=== PATIENT | male | born 1935 | race Caucasian/White ===

== ENCOUNTER 2017-03-03 00:21 | Emergency (ER) | payer MEDICARE, MEDICAID ==
[~2017-03-03] VITALS: Ht 167.6 cm; Wt 68.0 kg
--- NOTE | 2017-03-03 00:40 | NUR ---
to bed 3 ambulatory with family member c/o nosebleed x2 hours. pt aaox4 no acute distress noted, resp even and unlabored. active nosebleed noted with improvised nasal packing noted in both nostrils. pt denies pain or discomfort at this time. er md at bedside to eval pt with orders receved. will carry out orders.
--- NOTE | 2017-03-03 00:44 | NUR ---
nasal clamp placed per er md order.
--- NOTE | 2017-03-03 01:20 | NUR ---
no nose bleed noted at this time.
[2017-03-03] MEDS ORDERED: PHENYLEPHRINE 0.5% NASAL SPRAY 15 ML BOTTLE NS ONE ×2 (01:31→02:00)
--- NOTE | 2017-03-03 01:43 | NUR ---
er md at bedside to apply nasal packing to R nostril.
[2017-03-03 02:15] LABS: BASOPHILS % (AUTO) 0.1 % (0.0-2.0); EOSINOPHILS % (AUTO) 0.2 % (0.0-6.0); HEMATOCRIT 33 % (39-51); HEMOGLOBIN 10.9 g/dL (13.5-17.5); LYMPHOCYTES # (AUTO) 1.1 /CMM (0.8-4.8); MEAN CORPUSCULAR HEMOGLOBIN 28 PG (26.0-33.0); MEAN CORPUSCULAR HGB CONC 33 g/dl (31.0-36.0); MEAN CORPUSCULAR VOLUME 86 fL (80-96); MONOCYTES # (AUTO) 0.5 /CMM (0.1-1.30); NEUTROPHILS # (AUTO) 9.6 /CMM (1.8-8.9); NEUTROPHILS % (AUTO) 85.7 % (43.0-81.0); PLATELET COUNT (AUTO) 257 /CMM (150-450); RDW COEFFICIENT OF VARIATION 15.9 (11.5-15.0); RED BLOOD CELL COUNT(AUTO) 3.87 MIL/uL (4.5-6.0); WHITE BLOOD COUNT (AUTO) 11.2 K/uL (4.3-11.0)
--- NOTE | 2017-03-03 02:39 | NUR ---
pt still bleeding to R nare. er aware with order to remove packing and reapply nasal clamp.
--- NOTE | 2017-03-03 03:14 | NUR ---
er md at bedside to insert posterior nasal packing.
[2017-03-03 04:03] VITALS: BP 145/76
--- NOTE | 2017-03-03 04:05 | NUR ---
Patient does not wish to proceed with medical care recommended by Dr. Kidd). Patient given information related to possible complications, up to and including , which could occur as a result of leaving the hospital at this time. Patient verbalizes understanding of risks involved due to leaving against medical advice. Patient has signed AMA form. pt aaox4 no acute distress noted, resp even and unlabored. pt son at bedside to take pt home.
== END 2017-03-03 04:07 | disposition other institution (70) ==
LOC: ER 00:24
DX: R04.0 Epistaxis (principal); E11.9 Type 2 diabetes mellitus without complications; I10 Essential (primary) hypertension; Z95.0 Presence of cardiac pacemaker
CPT/HCPCS: 36415; 85025-TC; A4606; Z7610